=== PATIENT | female | born 1980 | race Caucasian/White ===

== ENCOUNTER 2017-06-23 23:22 | Emergency (ER) | payer MEDICAID, OTHER ==
[~2017-06-23] VITALS: Ht 182.9 cm; Wt 111.0 kg
[2017-06-23] MEDS ORDERED: KETO10TA2 PO (23:30)
[2017-06-23] MEDS ORDERED: AMOX-580 PO (23:30)
[2017-06-23] MEDS ORDERED: HYDR-3965 PO (23:30)
[2017-06-24] MEDS ORDERED: HYDROcodone/acetaminophen 10/325mg tab PO ONE (00:40)
[2017-06-24] MEDS ORDERED: ibuprofen tablet 400 MG TABLET PO ONE (00:40)
[2017-06-24] MEDS ORDERED: HYDR-3965 PO (00:43)
[2017-06-24] MEDS ORDERED: IBUP-1984 PO (00:43)
[2017-06-24 01:02] VITALS: BP 140/80
== END 2017-06-24 01:04 | disposition home or self-care (01) ==
LOC: ER 23:22
DX: M43.6 Torticollis (principal); Z88.5 Allergy status to narcotic agent; Z79.899 Other long term (current) drug therapy
CPT/HCPCS: 99283